=== PATIENT | female | born 1995 | race Caucasian/White ===

== ENCOUNTER 2017-10-03 19:18 | Emergency (ER) | payer OTHER ==
[~2017-10-03] VITALS: Ht 162.6 cm; Wt 77.1 kg
[2017-10-03 19:20] VITALS: BP_SYST 141
--- NOTE | 2017-10-03 19:26 | NUR ---
Patient to ER bed 03 to gown for evaluation. Side rails up. Will assume care.
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
--- NOTE | 2017-10-03 19:30 | NUR ---
Emy thakkar in EDM - 10/03/17 at 1936 by [email or web address] Pt to bed 3 . ER physician notified. In modified C-spine precautions with hard C-collar in place.
--- NOTE | 2017-10-03 19:54 | NUR ---
ER at bedside examining patient.
[2017-10-03] MEDS ORDERED: KETOROLAC TROMETHAMINE 60 MG/2 ML VIAL IM ONE (20:00)
--- NOTE | 2017-10-03 20:45 | NUR ---
Patient reports pain 0/10 15 minutes after administration of Toradol. No adverse reactions noted. Will continue to monitor.
[2017-10-03 21:16] VITALS: BP_SYST 141
--- NOTE | 2017-10-03 21:16 | NUR ---
Patient given written and verbal discharge instructions and verbalizes understanding. ER MD discussed with patient the results and treatment provided. Patient in stable condition. ID arm band removed. Rx of Naprosyn given. Patient educated on pain management and to follow up with PMD in 2-3 days. Pain Scale 0/10 Opportunity for questions provided and answered. Medication side effect fact sheet provided.
== END 2017-10-03 21:16 | disposition home or self-care (01) ==
LOC: SED 19:18
DX: S13.4XXA Sprain of ligaments of cervical spine, initial encounter (principal); M54.5 Low back pain; Z91.040 Latex allergy status; V49.9XXA Car occupant (driver) (passenger) injured in unspecified traffic accident, initial encounter; Y93.89 Activity, other specified; Y92.410 Unspecified street and highway as the place of occurrence of the external cause; Y99.8 Other external cause status
CPT/HCPCS: 72040; 72100; 81025; 96372; 99284; J1885